=== PATIENT | female | born 1955 | race Caucasian/White ===

== ENCOUNTER 2019-11-24 12:12 | Outpatient (CLI) | payer MEDICARE, MEDICAID ==
--- NOTE | 2019-11-24 13:28 | ULT ---
US Hepatic Doppler: 11/24/2019 12:00 AM CLINICAL HISTORY: Hepatitis C. Alcohol abuse. STUDY: Right upper quadrant ultrasound of liver. TECHNIQUE: Multiplanar grayscale and color Doppler images were obtained in a ultrasound of the right upper quadrant of the abdomen. Spectral analysis of the Doppler waveforms of the hepatic and splenic vessels were performed. COMPARISON: None. FINDINGS: Liver: Size: Normal. Echogenicity: Normal. Contour: Smooth. Mass: There is a 1.9 cm echogenic mass in the left lobe Bile ducts: No intrahepatic or extrahepatic biliary dilatation. Common bile duct measures mm. Gallbladder: Normal. Pancreas: Head, body, and tail appear normal. Hepatic veins: Normal waveforms. Normal directional flow. Portable veins: Normal waveforms. Normal directional flow. Hepatic arteries: Normal waveforms. Normal directional flow. Splenic vein: Normal waveforms. Normal directional flow. Splenic artery: Normal waveforms. Normal directional flow. The spleen is normal in echogenicity without focal lesions and measures 10.4cm in length. IMPRESSION: Echogenic lesion in the liver may represent a hemangioma. A CT of the abdomen per liver mass protocol is recommended for further evaluation.
== END 2019-11-24 12:13 | disposition home or self-care (01) ==
LOC: BICULT 12:12
PROVIDERS: ATTEND Internal Medicine Gastroenterology
DX: R76.8 Other specified abnormal immunological findings in serum (principal); F10.10 Alcohol abuse, uncomplicated; F17.200 Nicotine dependence, unspecified, uncomplicated; K76.9 Liver disease, unspecified
CPT/HCPCS: 76705

== ENCOUNTER 2019-12-04 13:24 | Outpatient (CLI) | payer MEDICARE, MEDICAID ==
[2019-12-04] MEDS ORDERED: Magnevist 469MG/ML 20 ML VIAL ONE (13:25)
--- NOTE | 2019-12-04 17:17 | MRI ---
MRI ABDOMEN WITH AND WITHOUT IV CONTRAST: Date: 12/04/2019 HISTORY: Liver mass. Hepatitis C. Alcohol abuse. Abnormal ultrasound of 11/24/2019. FINDINGS: There is a 4.0 x 3.5 x 2.5 cm mass in the lateral segment of the left lobe of the liver with high T2 signal. This demonstrates peripheral nodular enhancement on early images and centripetal filling on d elayed images, and is consistent with a hemangioma. A tiny cyst is seen in the posterior aspect of th e right lobe of the liver close to the dome. The gallbladder, pancreas, adrenal glands, spleen, and kidneys appear normal. No free fluid or lymphadenopathy seen. There is no evidence of aneurysmal dilatation of the abdominal aorta. The bone marrow signal is normal. IMPRESSION: 1. 4.0 cm hemangioma in left lobe of liver. 2. Tiny cyst in the right lobe of the liver. POS: [facility]
== END 2019-12-04 13:25 | disposition home or self-care (01) ==
LOC: BICMRI 13:24
PROVIDERS: ATTEND Physician Assistant Medical
DX: R16.0 Hepatomegaly, not elsewhere classified (principal); K76.89 Other specified diseases of liver; D18.03 Hemangioma of intra-abdominal structures
CPT/HCPCS: 74183; 82565; A9579